=== PATIENT | female | born 1990 | race American Indian/Alaskan Native ===

== ENCOUNTER 2017-07-16 08:36 | Emergency (ER) | payer OTHER ==
[2017-07-16] MEDS ORDERED: TORADOL IM ONE (11:10)
[2017-07-16] MEDS ORDERED: TORADOL ONE (11:16)
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
[2017-07-16 12:50] VITALS: BP 128/80
== END 2017-07-16 12:50 | disposition home or self-care (01) ==
LOC: ED 08:36
DX: S39.012A Strain of muscle, fascia and tendon of lower back, initial encounter (principal); G44.209 Tension-type headache, unspecified, not intractable; V49.49XA Driver injured in collision with other motor vehicles in traffic accident, initial encounter; Y92.488 Other paved roadways as the place of occurrence of the external cause; Y93.89 Activity, other specified; Y99.9 Unspecified external cause status; Z88.5 Allergy status to narcotic agent
CPT/HCPCS: 96372; 99282; J1885